=== PATIENT | male | born 1980 | race Caucasian/White ===

== ENCOUNTER 2023-01-04 11:03 | Day surgery (SDC) | payer OTHER ==
[2023-01-03 11:04] VITALS: BMI 22.9
[2023-01-04 11:54] LABS: Hematocrit 40.1 % (38.8-50.0); Hemoglobin 14.7 g/dL (13.5-17.5); Mean Corpuscular HGB CONC 36.7 g/dL (32.0-36.0); Mean Corpuscular Hemoglobin 34.6 pg (27.0-33.0); Mean Corpuscular Volume 94.4 fl (81.2-95.1); Mean Platelet Volume 8.9 fl (7.4-10.4); Platelet Count 252 10x3/uL (150-450); RBC Distribution Width 12.7 % (11.5-14.5); Red Blood Cell (RBC) Count 4.25 10x6/uL (4.32-5.72); White Blood Cell (WBC) Count 5.5 10x3/uL (3.5-10.5)
[2023-01-04 12:12] LABS: Anion Gap 12 mmol/L (10-20); BUN (Urea Nitrogen) 17 mg/dL (8.9-20.6); Calc. Creatinine Clearance 67 mL/min (70-130); Calcium 10.3 mg/dL (7.8-10.44); Carbon Dioxide 31 mmol/L (22-29); Chloride 102 mmol/L (98-107); Estimated GFR 61; Glucose 92 mg/dL (70-105); Potassium 5.2 mmol/L (3.5-5.1); Sodium 140 mmol/L (136-145)
[2023-01-04] MEDS ORDERED: Bupivacaine PF 0.5% 30 ML VIAL ONE (12:21)
[2023-01-04] MEDS ORDERED: EPINEPHrine 1 MG/ML VIAL ONE (12:21)
[2023-01-04] MEDS ORDERED: Midazolam HCl 2 mg/2 ml Vial ONE (12:33)
[2023-01-04] MEDS ORDERED: Ropivacaine 0.5% HCl/PF (150 MG/30 ML VIAL) ONE (12:33)
[2023-01-04] MEDS ORDERED: fentaNYL 50 mcg/mL 1 mL Vial ONE ×2 (12:33→13:42)
[2023-01-04] MEDS ORDERED: Lidocaine 1% PF 5 ML VIAL ONE ×2 (12:34→12:56)
[2023-01-04] MEDS ORDERED: PROPOFOL 20 ML ONE (12:56)
[2023-01-04] MEDS ORDERED: CEFAZOLIN 2 GM VIAL ONE (13:16)
[2023-01-04] MEDS ORDERED: Ondansetron PF 4 MG/2 ML Vial ONE (13:42)
== END 2023-01-04 16:35 | disposition home or self-care (01) ==
LOC: CSHSDC 11:03
PROVIDERS: ATTEND Orthopaedic Surgery
PROC: 0QSL04Z Reposition Right Tarsal with Internal Fixation Device, Open Approach (ICD-10-PCS; principal; 2023-01-04)
DX: S92.061A Displaced intraarticular fracture of right calcaneus, initial encounter for closed fracture (principal); W11.XXXA Fall on and from ladder, initial encounter; Z88.0 Allergy status to penicillin; Z79.899 Other long term (current) drug therapy
CPT/HCPCS: 36415; 80048; 85027; 93005; 93010; C1713; C1776; J0171; J2250; J2405; J2704; J2795; J3010; S0020